=== PATIENT | female | born 1955 ===

== ENCOUNTER 2020-06-09 13:49 | Emergency (ER) | payer MEDICARE, SELFPAY ==
[2020-06-09] MEDS ORDERED: Lisinopril 20 MG TAB ONE (14:17)
[2020-06-09] MEDS ORDERED: Acetaminophen 500 MG TAB ONE (14:17)
== END 2020-06-09 14:20 | disposition home or self-care (01) ==
LOC: BURERS 13:49
DX: I10 Essential (primary) hypertension (principal); F32.9 Major depressive disorder, single episode, unspecified; Z79.899 Other long term (current) drug therapy
CPT/HCPCS: 99283